=== PATIENT | male | born 1975 | race Caucasian/White ===

== ENCOUNTER 2023-08-31 16:42 | Emergency (ER) | payer OTHER, SELFPAY ==
[2023-08-31 16:52] VITALS: BP 135/88
[2023-08-31 17:12] LABS: Urine Albumin Negative (Neg - Trace); Urine Bilirubin Negative (Negative); Urine Character Clear (Clear); Urine Color Yellow; Urine Glucose Negative (Negative); Urine Ketone Negative (Negative); Urine Leukocyte Negative (Negative); Urine Nitrite Negative (Negative); Urine Occult Blood Negative (Negative); Urine Specific Gravity 1.015 (<1.030); Urine Urobilinogen Negative (Neg - 1+)
--- NOTE | 2023-08-31 18:14 | ED.GENMED ---
History of Present Illness
General
Chief Complaint: Back Pain
Time Seen by Provider: 08/31/23 17:59
Travel History
Have you had any contact with someone who has COVID-19?: No
Do you have any symptoms of coronavirus? Fever > 100 degrees, chills, cough, shortness of breath, sore throat, loss of taste or smell, muscle aches, or headache?: No
History of Present Illness
History of Present Illness:
48-year-old male presents to the emergency department for evaluation of left thoracic back pain after a fall. States he slipped while getting changed and fell into a chair. Pain is worse with any movement, pain does not get worse with deep
breathing, no hemoptysis. No fevers or chills recently. Denies any extremity paresthesias or chest pain
Past History
Past History
ED Past Medical History: None
ED Past Surgical History: None
Social History
Personal: Single
Living: alone
Employment: Employed
Review of Systems
Review of Systems
Allergies reviewed?: Yes
All Other Systems: ROS reviewed and negative except as documented in HPI and ROS
Phy Exam
Physical Exam
Physical Exam:
GEN: Well appearing, NAD, WDWN
HEENT: Oral mucosa moist, no scleral icterus
Cardiac: Regular rate
Lung: No respiratory distress, no tachypnea, lungs clear to auscultation
MSK: No gross deformity or injuries. No tenderness elicited to the left thoracic back or scapular region, no gross deformities, no crepitus
Skin: Good color, no pallor or jaundice, no rashes
Neuro: AO x3, moves all extremities freely
Psych: Calm, cooperative
Course
Orders/Labs/Results
Orders:
Orders
08/31/23 17:04
Urinalysis Reflex To Culture Urgent
Date Specimen was Collected: 08/31/23
Time Specimen was Collected: 16:55
08/31/23 18:14
CR Chest - 2 Views Urgent
Comment:
Reason For Exam: L upper back injury
Vital Signs
Initial and Last Documented VS:
Initial Vital Signs
Temp Pulse Resp BP Pulse Ox
98.6 F 92 16 135/88 98
08/31/23 16:52 08/31/23 16:52 08/31/23 16:52 08/31/23 16:52 08/31/23 16:52
Last Documented Vital Signs
Temp Pulse Resp BP Pulse Ox
98.6 F 92 16 135/88 98
08/31/23 16:52 08/31/23 16:52 08/31/23 16:52 08/31/23 16:52 08/31/23 16:52
MDM/Problems Addressed
MDM/Problems Addressed:
X-rays show no evidence for bony pathology or lung injury. Patient's pain is mild to moderate at this time. Discussed supportive care
*Critical Care Note
Total Time (30-74mins, 75-104mins- exclusive of procedures): Not Applicable
ED Attending Note
-
Portions of this chart may have been created with voice recognition software.� Occasional wrong word or��sound alike� substitutions may have occurred due to the inherent limitations of voice recognition software.
Discharge Plan
Departure
Patient Disposition: Home (Routine Discharge)
Date of Disposition: 08/31/23
Time of Disposition: 19:18
Patient with high blood pressure during this ER visit?: No
Discharge Problem:
Acute left-sided thoracic back pain
Instructions: Upper Back Pain (DC)
Prescriptions:
No Action
No Current Medications
0
Referrals:
Elmer Oliva MD [Family Provider] -
Interventions
Interventions:
*Risk Screen - Suicide Last Done: 08/31/23 19:15
*General Assessment Last Done: 08/31/23 19:15
*Neglect/Abuse Screening Last Done: 08/31/23 19:15
*ED COVID-19 Vaccine History Last Done: 08/31/23 16:52
*Nursing Disposition Last Done: 08/31/23 19:15
ED-Musculoskeletal Assessment Last Done: 08/31/23 17:48
Discharge Date and Time
Discharge Date/Time: 08/31/23 19:43
Print Language: DIVEHI
== END 2023-08-31 19:43 | disposition home or self-care (01) ==
LOC: EMR 16:42
PROVIDERS: Emergency Medicine; EMERGENCY PHYSICIAN Emergency Medicine; FAMILY PHYSICIAN Family Medicine
DX: M54.6 Pain in thoracic spine (principal)
CPT/HCPCS: 99284; 71046; 81003

== ENCOUNTER 2023-11-27 15:30 | Emergency (ER) | payer OTHER, SELFPAY ==
[2023-11-27 15:35] VITALS: BP 134/86; BMI 27.3
[2023-11-27 15:37] VITALS: BP 134/86
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
[2023-11-27 15:52] LABS: % Basophils 1.5 % (0-2); % Eosinophils 1.5 % (0-6); % Immature Granulocytes 0.3 % (0-0.5); % Lymphocytes 23.4 % (20.5-51.1); % Neutrophils 64.3 % (42.2-75.2); Absolute Basophils 0.1 10^3/uL (0-0.2); Absolute Eosinophils 0.1 10^3/uL (0-0.7); Absolute Lymphocytes 1.8 10^3/uL (1.2-3.4); Absolute Monocytes 0.7 10^3/uL (0.1-0.6); Absolute Neutrophils 5.1 10^3/uL (1.4-6.5); Hematocrit 42.6 % (39.0-52.0); Hemoglobin 14.8 g/dL (13.0-18.0); Mean Corp Hgb Conc. 34.7 g/dL (33.0-37.0); Mean Corpuscular Hgb 32.2 pg (27.0-31.0); Mean Corpuscular Volume 92.8 fL (80.0-94.0); Mean Platelet Volume 9.3 fL (7.4-10.4); Nucleated Red Blood Cells % 0 % (-); Platelet Count 287 10^3/uL (130-400); Red Blood Cell Count 4.59 10^6/uL (4.70-6.10); Red Cell Dist. Width 13.8 % (11.5-14.5); White Blood Cell Count 7.9 10^3/uL (4.8-10.8)
[2023-11-27 16:00] VITALS: BP 125/81
[2023-11-27] MEDS: NSS 1000 IV (16:09)
[2023-11-27 16:10] LABS: AST (SGOT) 56 U/L (17-59); Albumin 4.5 g/dl (3.5-5.0); Alkaline Phosphatase 88 U/L (38-126); Blood Urea Nitrogen 7 mg/dl (9-20); Calcium 9.6 mg/dl (8.4-10.2); Carbon Dioxide 17 mmol/L (22-30); Chloride 105 mmol/L (98-107); Estimated Creatinine Clearance > 125 ml/min; Glucose 151 mg/dl (70-99); Potassium 3.8 mmol/L (3.5-5.1); Sodium 138 mmol/L (135-145); Total Bilirubin 1.2 mg/dl (0.2-1.3); Total Protein 7.2 g/dl (6.3-8.2); eGFR > 60.00
[2023-11-27 16:19] LABS: ALT (SGPT) 48 U/L (0-50)
[2023-11-27 16:21] LABS: Alcohol None Detected
[2023-11-27 17:25] VITALS: BP 139/98
[2023-11-27 18:00] VITALS: BP 140/97
[2023-11-27] MEDS: KEPPRA 500 MG PO (18:32)
== END 2023-11-27 18:50 | disposition left against medical advice (07) ==
LOC: EMR 15:30
PROVIDERS: Emergency Medicine; EMERGENCY PHYSICIAN Emergency Medicine; FAMILY PHYSICIAN Family Medicine
DX: G40.909 Epilepsy, unspecified, not intractable, without status epilepticus (principal)
CPT/HCPCS: 99284; 96360; 70450; 80053; 82077; 85025; 93005

== ENCOUNTER 2024-01-07 01:42 | Emergency (ER) | payer OTHER, SELFPAY ==
[2024-01-07 02:06] VITALS: BP 108/72
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
[2024-01-07] MEDS: TORADOL 15 MG IM (02:32)
[2024-01-07 02:37] VITALS: BMI 26.7
[2024-01-07] MEDS: LIDOCAINE 4% PATCH 1 PATCH TOPICAL (03:05)
== END 2024-01-07 03:14 | disposition home or self-care (01) ==
LOC: EMR 01:42
PROVIDERS: EMERGENCY PHYSICIAN Student in an Organized Health Care Education/Training Program
DX: S22.42XA Multiple fractures of ribs, left side, initial encounter for closed fracture (principal); Y04.8XXA Assault by other bodily force, initial encounter
CPT/HCPCS: 99284; 96372; 71101